=== PATIENT | male | born 1960 | race Hispanic/Latino ===

== ENCOUNTER 2022-07-26 16:41 | Inpatient (IN) | payer BC ==
[~2022-07-26] VITALS: Ht 170.2 cm; Wt 62.6 kg
[2022-07-26] MEDS ORDERED: LISINOPRIL2.5 MG PO (17:28)
[2022-07-26] MEDS ORDERED: CLOPIDOGREL75 MG PO (17:28)
[2022-07-26] MEDS ORDERED: ASPIRIN EC81 MG PO (17:28)
[2022-07-26] MEDS ORDERED: METOPROLOL TART25 MG PO (17:28)
[2022-07-26] MEDS ORDERED: METFORMIN HCL500 M2 PO (17:28)
[2022-07-26] MEDS ORDERED: TETANUS/DIPHTHERIA TOX ADULT 0.5 ML SYR IM ONE (18:30)
[2022-07-26] MEDS ORDERED: Vancomycin IV 1 GM in SODIUM CHLORIDE 0.9% 250ML 250 ML IV ONE (18:30)
[2022-07-26] MEDS ORDERED: SODIUM CHLORIDE 0.9% 250ML 250 ML ONE (18:38)
[2022-07-26] MEDS ORDERED: PIPERACILLIN/TAZOBACTAM 3.375 GM VIAL ONE (18:38)
[2022-07-26] MEDS ORDERED: SODIUM CHLORIDE 0.9% 1000ML 1,000 ML ONE (18:38)
[2022-07-26] MEDS ORDERED: Vancomycin IV 1 GM VIAL ONE (18:38)
[2022-07-26] MEDS ORDERED: TETANUS/DIPHTHERIA TOX ADULT 0.5 ML SYR ONE (18:38)
[2022-07-26] MEDS: SODIUM CHLORIDE 0.9% 1000ML 1,000 ML IV SCH (18:46)
[2022-07-26] MEDS ORDERED: ONDANSETRON HCL INJ 2MG/ML 2ML 2 MG/ML VIAL IV PRN (19:30)
[2022-07-26] MEDS ORDERED: SODIUM CHLORIDE FLUSH 10 ML SYR INJ PRN (19:30)
[2022-07-26] MEDS ORDERED: DEXTROSE 50% SYRINGE 50 ML IV PRN (19:45)
[2022-07-26 20:00] VITALS: BP 156/87; PULSE 97; RESP 20; TEMP 98.6; O2SAT 100
[2022-07-26 20:51] VITALS: BP 156/87; PULSE 97; RESP 20; TEMP 98.6; O2SAT 100
[2022-07-26 22:15] VITALS: BP 156/87; PULSE 97; RESP 20; TEMP 98.6; O2SAT 100
[2022-07-26] MEDS: INSULIN LISPRO 100 UNIT/1 ML 3ML VIAL SQ SCH (22:39)
[2022-07-27] VITALS (9 sets, daily range): BP systolic 148–171; BP diastolic 77–99; PULSE 82–97; RESP 18–23; TEMP 98.5–100.1; O2SAT 96–100
[2022-07-27] MEDS: SODIUM CHLORIDE 0.9% 1000ML 1,000 ML IV SCH ×2 (01:12→13:38)
[2022-07-27] MEDS: KETOROLAC TROMETHAMINE 30 MG/ML VIAL IV PRN ×2 (01:12→20:17)
[2022-07-27 06:17] LABS: CHOL/HDL RATIO 4.8 (3.9-4.7)
[2022-07-27] MEDS: Vancomycin IV 1 GM in SODIUM CHLORIDE 0.9% 250ML 250 ML IV SCH ×2 (06:29→17:52)
[2022-07-27 06:32] LABS: BASOPHILS % 0.2 % (0.0-1.0); EOSINOPHILS # (AUTO) 0.1 (0.0-0.4); HEMATOCRIT 32.9 % (38.2-49.6); HEMOGLOBIN 10.9 g/dL (14.0-18.0); LYMPHOCYTES % 22.5 % (18.0-39.1); MEAN CORPUSCULAR HEMOGLOBIN 26.1 pg (28-32); MEAN CORPUSCULAR HGB CONC 33.1 g/dL (31-35); MEAN CORPUSCULAR VOLUME 78.7 fL (81-99); MONOCYTES % 11.4 % (4.4-11.3); NEUTROPHILS # (AUTO) 5.7 (2.1-6.9); NEUTROPHILS % 64.6 % (38.7-80.0); PLATELET COUNT 296 x10e3/uL (140-360); RED BLOOD COUNT 4.18 x10e6/uL (4.3-5.7); RED CELL DISTRIBUTION WIDTH 13.3 % (11.7-14.4)
[2022-07-27 06:40] LABS: ALBUMIN 2.6 g/dL (3.5-5.0); ALBUMIN/GLOBULIN RATIO 0.6 (0.8-2.0); ANION GAP 13.1 mmol/L (8-16); CALCIUM 9.1 mg/dL (8.4-10.2); CREATININE, SERUM 0.85 mg/dL (0.72-1.25); POTASSIUM 4.1 mmol/L (3.5-5.1)
[2022-07-27] MEDS: INSULIN LISPRO 100 UNIT/1 ML 3ML VIAL SQ SCH ×4 (08:51→20:30)
[2022-07-27] MEDS: CEFEPIME 2 GM in SODIUM CHLORIDE 0.9% 100 ML IV SCH (20:17)
[2022-07-28] VITALS (7 sets, daily range): BP systolic 143–160; BP diastolic 84–90; PULSE 84–93; RESP 18–20; TEMP 98.7–99.5; O2SAT 97–100
[2022-07-28] MEDS: SODIUM CHLORIDE 0.9% 1000ML 1,000 ML IV SCH ×3 (00:58→17:04)
[2022-07-28] MEDS: Vancomycin IV 1 GM in SODIUM CHLORIDE 0.9% 250ML 250 ML IV SCH ×2 (04:36→18:37)
[2022-07-28 05:46] LABS: HEMATOCRIT 32.3 % (38.2-49.6); HEMOGLOBIN 10.6 g/dL (14.0-18.0); MEAN CORPUSCULAR HEMOGLOBIN 26.4 pg (28-32); MEAN CORPUSCULAR HGB CONC 32.8 g/dL (31-35); MEAN CORPUSCULAR VOLUME 80.3 fL (81-99); PLATELET COUNT 285 x10e3/uL (140-360); RED BLOOD COUNT 4.02 x10e6/uL (4.3-5.7); RED CELL DISTRIBUTION WIDTH 13.1 % (11.7-14.4)
[2022-07-28 06:20] LABS: ALBUMIN 2.5 g/dL (3.5-5.0); ALBUMIN/GLOBULIN RATIO 0.6 (0.8-2.0); CALCIUM 8.7 mg/dL (8.4-10.2); CREATININE, SERUM 0.77 mg/dL (0.72-1.25)
[2022-07-28] MEDS: INSULIN LISPRO 100 UNIT/1 ML 3ML VIAL SQ SCH ×4 (07:30→20:36)
[2022-07-28] MEDS: METOPROLOL TARTRATE 25 MG TAB PO SCH ×2 (08:39→20:38)
[2022-07-28] MEDS: CEFEPIME 2 GM in SODIUM CHLORIDE 0.9% 100 ML IV SCH ×2 (08:39→20:41)
[2022-07-28 09:50] LABS: EOSINOPHILS % (MANUAL) 4 % (0-7); LYMPHOCYTES % (MANUAL) 26 % (19-48); MONOCYTES % (MANUAL) 7 % (3.4-9.0); NEUTROPHILS % (MANUAL) 58 % (40-74)
[2022-07-28 09:51] LABS: PLATELET ESTIMATE ADEQUATE; PLATELET MORPHOLOGY COMMENT NORMAL; RBC MORPHOLOGY COMMENT NORMAL
[2022-07-28] MEDS: ASPIRIN 81 MG CHEW TAB PO SCH (10:50)
[2022-07-28] MEDS: KETOROLAC TROMETHAMINE 30 MG/ML VIAL IV PRN (18:39)
[2022-07-28] MEDS: ATORVASTATIN 40 MG TAB PO SCH (20:39)
[2022-07-29] VITALS: BP 139/79; PULSE 80; RESP 18; TEMP 99; O2SAT 99
[2022-07-29] MEDS: SODIUM CHLORIDE 0.9% 1000ML 1,000 ML IV SCH ×3 (00:34→22:15)
[2022-07-29 04:00] VITALS: BP 148/79; PULSE 85; RESP 18; TEMP 99.7; O2SAT 100
[2022-07-29] MEDS: Vancomycin IV 1 GM in SODIUM CHLORIDE 0.9% 250ML 250 ML IV SCH ×2 (06:08→19:07)
[2022-07-29 06:25] LABS: BASOPHILS % 0.2 % (0.0-1.0); EOSINOPHILS # (AUTO) 0.1 (0.0-0.4); EOSINOPHILS % 1.4 % (0.0-6.0); HEMATOCRIT 33.9 % (38.2-49.6); LYMPHOCYTES # (AUTO) 2.1 (1.0-3.2); LYMPHOCYTES % 22.7 % (18.0-39.1); MEAN CORPUSCULAR HEMOGLOBIN 26.3 pg (28-32); MEAN CORPUSCULAR HGB CONC 32.4 g/dL (31-35); MEAN CORPUSCULAR VOLUME 81.1 fL (81-99); MONOCYTES # (AUTO) 0.8 (0.2-0.8); MONOCYTES % 8.9 % (4.4-11.3); NEUTROPHILS % 66.3 % (38.7-80.0); PLATELET COUNT 333 x10e3/uL (140-360); RED BLOOD COUNT 4.18 x10e6/uL (4.3-5.7); RED CELL DISTRIBUTION WIDTH 13.2 % (11.7-14.4)
[2022-07-29 06:29] LABS: INR 1.04; PARTIAL THROMBOPLASTIN TIME 35.3 seconds (23.8-35.5); PROTHROMBIN TIME 14.1 seconds (11.9-14.5)
[2022-07-29 06:42] LABS: ALBUMIN 2.6 g/dL (3.5-5.0); ALBUMIN/GLOBULIN RATIO 0.5 (0.8-2.0); ANION GAP 13.1 mmol/L (8-16); CALCIUM 9.1 mg/dL (8.4-10.2); CHOL/HDL RATIO 4.8 (3.9-4.7); CREATININE, SERUM 0.74 mg/dL (0.72-1.25); POTASSIUM 4.1 mmol/L (3.5-5.1)
[2022-07-29 07:09] LABS: THYROID STIMULATING HORMONE 1.135 uIU/mL (0.350-4.940)
[2022-07-29] MEDS: INSULIN LISPRO 100 UNIT/1 ML 3ML VIAL SQ SCH ×4 (07:30→22:14)
[2022-07-29] MEDS ORDERED: SODIUM CHLORIDE 0.9% 200 ML ONE (08:13)
[2022-07-29] MEDS ORDERED: CEFEPIME 2 GM VIAL ONE (08:15)
[2022-07-29 08:37] VITALS: BP 160/85; PULSE 90; RESP 19; TEMP 98; O2SAT 100
[2022-07-29] MEDS: METOPROLOL TARTRATE 25 MG TAB PO SCH ×2 (09:34→22:15)
[2022-07-29] MEDS: ASPIRIN 81 MG CHEW TAB PO SCH (09:34)
[2022-07-29] MEDS: CEFEPIME 2 GM in SODIUM CHLORIDE 0.9% 100 ML IV SCH ×2 (09:35→22:15)
[2022-07-29] MEDS ORDERED: HEPARIN SOD (PORCINE) 1000 UNIT/ML 30ML ONE (11:31)
[2022-07-29] MEDS ORDERED: LIDOCAINE HCL 2% LOCAL 20 ML VIAL ONE (11:31)
[2022-07-29] MEDS ORDERED: IOPAMIDOL 370 MG/ML 100 ML INFUS..BTL INJ ONE (11:31)
[2022-07-29] MEDS ORDERED: NITROGLYCERIN/D5W 200 MCG/ML 250 ML ONE (11:31)
[2022-07-29] MEDS ORDERED: SODIUM CHLORIDE 0.9% 1000ML 1,000 ML ONE ×2 (11:31→12:01)
[2022-07-29] MEDS ORDERED: HEPARIN SOD/SOD CHLORIDE 2,000 ML ONE (11:31)
[2022-07-29] MEDS ORDERED: MIDAZOLAM HCL 2 MG/2 ML VIAL ONE (12:00)
[2022-07-29] MEDS ORDERED: FENTANYL CITRATE/PF 100MCG/2 ML INJ ONE (12:01)
[2022-07-29 15:00] VITALS: BP_SYST 157; BP_SYST 161; BP_DIAS 71; BP_DIAS 79; BP_DIAS 86; PULSE 87; PULSE 90; RESP 18; RESP 20; TEMP 98.7; TEMP 99.3; O2SAT 100; O2SAT 96
[2022-07-29] MEDS: KETOROLAC TROMETHAMINE 30 MG/ML VIAL IV PRN (19:05)
[2022-07-29 20:00] VITALS: BP 151/77; PULSE 88; RESP 17; TEMP 99.9; O2SAT 100
[2022-07-29 21:00] VITALS: BP 151/77; PULSE 88; RESP 17; TEMP 99.9; O2SAT 100
[2022-07-29] MEDS: ATORVASTATIN 40 MG TAB PO SCH (22:15)
[2022-07-30] VITALS: BP 141/78; PULSE 80; RESP 17; TEMP 98.9; O2SAT 100
[2022-07-30 04:00] VITALS: BP 147/79; PULSE 79; RESP 17; TEMP 99; O2SAT 98
[2022-07-30] MEDS: SODIUM CHLORIDE 0.9% 1000ML 1,000 ML IV SCH ×3 (05:39→18:53)
[2022-07-30] MEDS: Vancomycin IV 1 GM in SODIUM CHLORIDE 0.9% 250ML 250 ML IV SCH ×2 (05:39→18:28)
[2022-07-30] MEDS ORDERED: DEXAMETHASONE SOD PHOS INJ 4 MG/ML SDV ONE (06:38)
[2022-07-30] MEDS ORDERED: BUPIVACAINE HCL 0.5% INJ 30 ML VIAL INJ ONE (06:38)
[2022-07-30] MEDS: INSULIN LISPRO 100 UNIT/1 ML 3ML VIAL SQ SCH ×4 (07:30→21:30)
[2022-07-30 08:26] VITALS: BP 153/82; PULSE 81; RESP 17; TEMP 98.2; O2SAT 100
[2022-07-30] MEDS: ASPIRIN 81 MG CHEW TAB PO SCH (10:21)
[2022-07-30] MEDS: METOPROLOL TARTRATE 50 MG TAB PO SCH ×2 (10:21→21:24)
[2022-07-30] MEDS: LOSARTAN POTASSIUM 25 MG TAB PO SCH (10:22)
[2022-07-30] MEDS: CEFEPIME 2 GM in SODIUM CHLORIDE 0.9% 100 ML IV SCH ×2 (10:22→21:24)
[2022-07-30] MEDS ORDERED: FENTANYL CITRATE/PF 100MCG/2 ML INJ ONE (11:54)
[2022-07-30] MEDS ORDERED: LIDOCAINE HCL 2% LOCAL INJ 5 ML SDV VIAL INJ ONE (13:01)
[2022-07-30] MEDS ORDERED: KETOROLAC TROMETHAMINE 30 MG/ML VIAL ONE (13:01)
[2022-07-30] MEDS ORDERED: PROPOFOL IV EMULSION 10 MG/ML 20 ML VIAL ONE (13:01)
[2022-07-30] MEDS ORDERED: POVIDONE IODINE 0.05% 0.05 % ML PO ONE (13:01)
[2022-07-30] MEDS ORDERED: METOCLOPRAMIDE HCL 10 MG/2ML VIAL ONE (13:01)
[2022-07-30] MEDS ORDERED: EPHEDRINE SULFATE INJ 50 MG/ML VIAL ONE (13:01)
[2022-07-30] MEDS ORDERED: SEVOFLURANE INHAL SOLN 250 ML PEN BTL ONE (13:01)
[2022-07-30 15:45] VITALS: BP 143/76; PULSE 76; RESP 18; TEMP 98.9; O2SAT 100
[2022-07-30 20:27] VITALS: BP 152/80; PULSE 80; RESP 17; TEMP 99.7; O2SAT 99
[2022-07-30 21:00] VITALS: BP 152/80; PULSE 80; RESP 17; TEMP 99.7; O2SAT 99
[2022-07-30] MEDS: ATORVASTATIN 40 MG TAB PO SCH (21:24)
[2022-07-31] VITALS (7 sets, daily range): BP systolic 140–163; BP diastolic 74–86; PULSE 74–94; RESP 17–20; TEMP 98.4–101; O2SAT 97–100
[2022-07-31] MEDS: SODIUM CHLORIDE 0.9% 1000ML 1,000 ML IV SCH ×3 (02:00→16:23)
[2022-07-31] MEDS: Vancomycin IV 1 GM in SODIUM CHLORIDE 0.9% 250ML 250 ML IV SCH ×2 (05:24→16:22)
[2022-07-31] MEDS: METOPROLOL TARTRATE 50 MG TAB PO SCH ×2 (10:57→20:18)
[2022-07-31] MEDS: ASPIRIN 81 MG CHEW TAB PO SCH (10:57)
[2022-07-31] MEDS: LOSARTAN POTASSIUM 25 MG TAB PO SCH (10:58)
[2022-07-31] MEDS: CEFEPIME 2 GM in SODIUM CHLORIDE 0.9% 100 ML IV SCH ×2 (10:58→20:17)
[2022-07-31] MEDS: INSULIN LISPRO 100 UNIT/1 ML 3ML VIAL SQ SCH ×4 (11:05→20:25)
[2022-07-31] MEDS: KETOROLAC TROMETHAMINE 30 MG/ML VIAL IV PRN (13:00)
[2022-07-31] MEDS: ACETAMINOPHEN 325 MG TAB PO PRN (20:19)
[2022-07-31] MEDS: ATORVASTATIN 40 MG TAB PO SCH (20:19)
[2022-08-01] VITALS (7 sets, daily range): BP systolic 138–153; BP diastolic 75–83; PULSE 73–85; RESP 16–20; TEMP 98.4–100.1; O2SAT 96–99
[2022-08-01] MEDS: SODIUM CHLORIDE 0.9% 1000ML 1,000 ML IV SCH ×3 (03:48→18:18)
[2022-08-01 06:57] LABS: ALBUMIN 1.7 g/dL (3.5-5.0); ALBUMIN/GLOBULIN RATIO 0.5 (0.8-2.0); ANION GAP 11.1 mmol/L (8-16); CREATININE, SERUM 0.54 mg/dL (0.72-1.25); POTASSIUM 3.1 mmol/L (3.5-5.1)
[2022-08-01] MEDS: Vancomycin IV 1 GM in SODIUM CHLORIDE 0.9% 250ML 250 ML IV SCH (07:04)
[2022-08-01] MEDS: INSULIN LISPRO 100 UNIT/1 ML 3ML VIAL SQ SCH ×4 (07:30→20:57)
[2022-08-01 07:33] LABS: CALCIUM 6.5 mg/dL (8.4-10.2)
[2022-08-01 07:45] LABS: HEMATOCRIT 26.8 % (38.2-49.6); HEMOGLOBIN 8.8 g/dL (14.0-18.0); MEAN CORPUSCULAR HGB CONC 32.8 g/dL (31-35); MEAN CORPUSCULAR VOLUME 79.1 fL (81-99); PLATELET COUNT 354 x10e3/uL (140-360); RED BLOOD COUNT 3.39 x10e6/uL (4.3-5.7); RED CELL DISTRIBUTION WIDTH 13.2 % (11.7-14.4)
[2022-08-01] MEDS ORDERED: POTASSIUM CHLORIDE 20 MEQ TAB CR PO ONE (10:20)
[2022-08-01] MEDS ORDERED: CALCIUM GLUC 1 G/50 ML NACL 50 ML IV ONE (10:35)
[2022-08-01] MEDS: CEFEPIME 2 GM in SODIUM CHLORIDE 0.9% 100 ML IV SCH (11:45)
[2022-08-01] MEDS: ACETAMINOPHEN 325 MG TAB PO PRN (11:45)
[2022-08-01] MEDS: ASPIRIN 81 MG CHEW TAB PO SCH (11:45)
[2022-08-01] MEDS: LOSARTAN POTASSIUM 25 MG TAB PO SCH (11:46)
[2022-08-01] MEDS: METOPROLOL TARTRATE 50 MG TAB PO SCH ×2 (11:46→20:50)
[2022-08-01] MEDS: CLOPIDOGREL BISULFATE 75 MG TAB PO SCH (11:48)
[2022-08-01] MEDS: CIPROFLOXACIN 500 MG TAB PO SCH ×2 (18:17→20:49)
[2022-08-01] MEDS: DOXYCYCLINE HYCLATE TABLET 100 MG TAB PO SCH ×2 (18:17→20:49)
[2022-08-01] MEDS: ATORVASTATIN 40 MG TAB PO SCH (20:49)
[2022-08-02] VITALS: BP 129/76; PULSE 74; RESP 17; TEMP 99.1; O2SAT 100
[2022-08-02 04:00] VITALS: BP 139/72; PULSE 83; RESP 17; TEMP 99; O2SAT 99
[2022-08-02] MEDS: SODIUM CHLORIDE 0.9% 1000ML 1,000 ML IV SCH ×2 (05:11→09:11)
[2022-08-02 08:54] VITALS: BP 155/82; PULSE 82; RESP 16; TEMP 99; O2SAT 96
[2022-08-02] MEDS: METOPROLOL TARTRATE 50 MG TAB PO SCH (09:06)
[2022-08-02] MEDS: CLOPIDOGREL BISULFATE 75 MG TAB PO SCH (09:06)
[2022-08-02] MEDS: ASPIRIN 81 MG CHEW TAB PO SCH (09:06)
[2022-08-02] MEDS: DOXYCYCLINE HYCLATE TABLET 100 MG TAB PO SCH (09:07)
[2022-08-02] MEDS: CIPROFLOXACIN 500 MG TAB PO SCH (09:07)
[2022-08-02] MEDS: LOSARTAN POTASSIUM 25 MG TAB PO SCH (09:07)
[2022-08-02] MEDS: INSULIN LISPRO 100 UNIT/1 ML 3ML VIAL SQ SCH ×2 (09:24→12:18)
[2022-08-02] MEDS ORDERED: CIPROFLOXACIN500 MG PO (10:04)
[2022-08-02] MEDS ORDERED: METOPROLOL TART50 MG PO (10:04)
[2022-08-02] MEDS ORDERED: COZAAR25 MG PO (10:04)
[2022-08-02] MEDS ORDERED: ATORVASTATIN CA40 MG PO (10:04)
[2022-08-02] MEDS ORDERED: DOXYCYCLINE HY100 MG PO (10:04)
[2022-08-02] MEDS ORDERED: ONDANSETRON HCL 4 MG ORAL DISINTEGRATING TAB PO PRN (12:30)
== END 2022-08-02 12:44 | disposition home or self-care (01) | DRG 617 ==
LOC: FSED 17:22 → ERHOLD 19:33 → MED/SURG3 21:17
PROVIDERS: ADMIT Internal Medicine; ATTEND Internal Medicine
PROC: 0Y6Q0Z0 Detachment at Left 1st Toe, Complete, Open Approach (ICD-10-PCS; principal; 2022-07-30 07:04)
DX: E11.69 Type 2 diabetes mellitus with other specified complication (principal); E11.52 Type 2 diabetes mellitus with diabetic peripheral angiopathy with gangrene; M86.172 Other acute osteomyelitis, left ankle and foot; I31.39 Other pericardial effusion (noninflammatory); I96 Gangrene, not elsewhere classified; L03.115 Cellulitis of right lower limb; L03.116 Cellulitis of left lower limb; I50.22 Chronic systolic (congestive) heart failure; E11.65 Type 2 diabetes mellitus with hyperglycemia; I11.0 Hypertensive heart disease with heart failure; I77.89 Other specified disorders of arteries and arterioles; I25.10 Atherosclerotic heart disease of native coronary artery without angina pectoris; Z20.822 Contact with and (suspected) exposure to COVID-19; Z95.5 Presence of coronary angioplasty implant and graft; I25.2 Old myocardial infarction; Z83.3 Family history of diabetes mellitus; Z82.49 Family history of ischemic heart disease and other diseases of the circulatory system; Z91.148 Patient's other noncompliance with medication regimen for other reason; Z59.6 Low income; Z63.8 Other specified problems related to primary support group
CPT/HCPCS: 0223U; 36415; 75625; 75710; 80053; 80061; 80202; 82948; 83036; 83605; 84145; 84443; 85007; 85025; 85027; 85610; 85730; 86140; 87040; 87071; 87075; 87086; 87205; 88304; 88305; 88311; 90471; 90714; 93306; 93925; 96361; 96372; 99152; 99153; 99284; C1760; C1769; C1887; C1894; J0692; J1100; J1644; J1885; J2001; J2250; J2543; J2765; J7030; J7050; Q9967

== ENCOUNTER → 2022-08-04 | Outpatient (CLI) | payer BC ==
[~2022-08-04] MED LIST: ASPIRIN EC81 MG PO; ATORVASTATIN CA40 MG PO; CIPROFLOXACIN500 MG PO; CLOPIDOGREL75 MG PO; COZAAR25 MG PO; DOXYCYCLINE HY100 MG PO; LIDOCAINE VISC 2% SOLN 15 ML UDC ONE; LISINOPRIL2.5 MG PO; METFORMIN HCL500 M2 PO; METOPROLOL TART25 MG PO; METOPROLOL TART50 MG PO
[2022-08-06 14:54] LABS: HEMATOCRIT 32.8 % (38.2-49.6); HEMOGLOBIN 10.8 g/dL (14.0-18.0); MEAN CORPUSCULAR HEMOGLOBIN 26.1 pg (28-32); MEAN CORPUSCULAR HGB CONC 32.9 g/dL (31-35); MEAN CORPUSCULAR VOLUME 79.2 fL (81-99); PLATELET COUNT 469 x10e3/uL (140-360); RED BLOOD COUNT 4.14 x10e6/uL (4.3-5.7); RED CELL DISTRIBUTION WIDTH 13.5 % (11.7-14.4)
[2022-08-06 15:01] LABS: EOSINOPHILS % (MANUAL) 1 % (0-7); LYMPHOCYTES % (MANUAL) 19 % (19-48); MONOCYTES % (MANUAL) 6 % (3.4-9.0); NEUTROPHILS % (MANUAL) 74 % (40-74)
[2022-08-06 15:02] LABS: PLATELET ESTIMATE MODERATELY INCREASED; PLATELET MORPHOLOGY COMMENT NORMAL; RBC MORPHOLOGY COMMENT NORMAL
[2022-08-06 15:19] LABS: ALBUMIN 2.9 g/dL (3.5-5.0); ALBUMIN/GLOBULIN RATIO 0.6 (0.8-2.0); ANION GAP 17.7 mmol/L (8-16); CALCIUM 9.7 mg/dL (8.4-10.2); CREATININE, SERUM 0.82 mg/dL (0.72-1.25); POTASSIUM 3.7 mmol/L (3.5-5.1)
== END ==
LOC: WCC 14:00
PROVIDERS: ATTEND Family Medicine Adult Medicine
DX: E11.621 Type 2 diabetes mellitus with foot ulcer (principal); T86.821 Skin graft (allograft) (autograft) failure; Y83.5 Amputation of limb(s) as the cause of abnormal reaction of the patient, or of later complication, without mention of misadventure at the time of the procedure; L97.512 Non-pressure chronic ulcer of other part of right foot with fat layer exposed
CPT/HCPCS: 36415; 80053; 82948; 83036; 84134; 85007; 85027

== ENCOUNTER → 2022-08-06 | Outpatient (CLI) | payer BC ==
[~2022-08-06] MED LIST changes: -LIDOCAINE VISC 2% SOLN 15 ML UDC ONE
== END ==
LOC: RAD 10:31
PROVIDERS: ATTEND Family Medicine Adult Medicine
DX: T86.821 Skin graft (allograft) (autograft) failure (principal)
CPT/HCPCS: 71046; 93005

== ENCOUNTER → 2022-08-10 | Outpatient (CLI) | payer BC | LOC: WCC 13:38 | PROVIDERS: ATTEND Family Medicine Adult Medicine | DX: T86.821 Skin graft (allograft) (autograft) failure (principal); Y83.5 Amputation of limb(s) as the cause of abnormal reaction of the patient, or of later complication, without mention of misadventure at the time of the procedure; E11.621 Type 2 diabetes mellitus with foot ulcer; L97.512 Non-pressure chronic ulcer of other part of right foot with fat layer exposed ==

== ENCOUNTER 2022-08-11 12:29 | Observation (INO) | payer BC ==
[~2022-08-11] VITALS: Ht 170.2 cm; Wt 62.6 kg
[2022-08-11 13:02] LABS: BASOPHILS % 0.4 % (0.0-1.0); EOSINOPHILS % 0.4 % (0.0-6.0); HEMATOCRIT 33.2 % (38.2-49.6); LYMPHOCYTES # (AUTO) 2.1 (1.0-3.2); LYMPHOCYTES % 22.1 % (18.0-39.1); MEAN CORPUSCULAR HEMOGLOBIN 25.8 pg (28-32); MEAN CORPUSCULAR HGB CONC 33.1 g/dL (31-35); MEAN CORPUSCULAR VOLUME 77.8 fL (81-99); MONOCYTES # (AUTO) 0.7 (0.2-0.8); MONOCYTES % 7.4 % (4.4-11.3); NEUTROPHILS # (AUTO) 6.6 (2.1-6.9); NEUTROPHILS % 69.4 % (38.7-80.0); PLATELET COUNT 383 x10e3/uL (140-360); RED BLOOD COUNT 4.27 x10e6/uL (4.3-5.7); RED CELL DISTRIBUTION WIDTH 13.6 % (11.7-14.4)
[2022-08-11 13:07] LABS: INR 1.06; PROTHROMBIN TIME 14.4 seconds (11.9-14.5)
[2022-08-11 13:08] LABS: PARTIAL THROMBOPLASTIN TIME 30.1 seconds (23.8-35.5)
[2022-08-11 13:20] LABS: ALBUMIN 3.1 g/dL (3.5-5.0); ALBUMIN/GLOBULIN RATIO 0.7 (0.8-2.0); ANION GAP 17.3 mmol/L (8-16); CALCIUM 9.4 mg/dL (8.4-10.2); CREATININE, SERUM 1.2 mg/dL (0.72-1.25); POTASSIUM 4.3 mmol/L (3.5-5.1)
[2022-08-11] MEDS ORDERED: ONDANSETRON HCL INJ 2MG/ML 2ML 2 MG/ML VIAL IV PRN (14:45)
[2022-08-11] MEDS: SODIUM CHLORIDE 0.9% 1000ML 1,000 ML IV SCH ×2 (14:45→22:10)
[2022-08-11 15:22] VITALS: PULSE 71; RESP 16; O2SAT 97
[2022-08-11 20:00] VITALS: BP 154/91; PULSE 96; RESP 18; TEMP 98.8; O2SAT 98
[2022-08-11 20:40] VITALS: BP 154/91; PULSE 96; RESP 18; TEMP 98.8; O2SAT 98
[2022-08-11 20:45] VITALS: BP 154/91; PULSE 96; RESP 18; TEMP 98.8; O2SAT 98
[2022-08-11 20:56] VITALS: PULSE 68; RESP 16; O2SAT 95
[2022-08-11] MEDS ORDERED: DEXTROSE 50% SYRINGE 50 ML IV PRN (22:00)
[2022-08-11] MEDS: INSULIN LISPRO 100 UNIT/1 ML 3ML VIAL SQ SCH (22:10)
[2022-08-12] VITALS (8 sets, daily range): BP systolic 115–139; BP diastolic 78–85; PULSE 80–96; RESP 16–18; TEMP 98.1–99.3; O2SAT 97–100
[2022-08-12] MEDS: SODIUM CHLORIDE 0.9% 1000ML 1,000 ML IV SCH ×3 (06:11→22:19)
[2022-08-12 06:15] LABS: BASOPHILS % 0.4 % (0.0-1.0); EOSINOPHILS # (AUTO) 0.2 (0.0-0.4); EOSINOPHILS % 2.6 % (0.0-6.0); HEMATOCRIT 31.5 % (38.2-49.6); HEMOGLOBIN 10.5 g/dL (14.0-18.0); LYMPHOCYTES # (AUTO) 2.2 (1.0-3.2); LYMPHOCYTES % 26.5 % (18.0-39.1); MEAN CORPUSCULAR HEMOGLOBIN 25.9 pg (28-32); MEAN CORPUSCULAR HGB CONC 33.3 g/dL (31-35); MEAN CORPUSCULAR VOLUME 77.6 fL (81-99); MONOCYTES # (AUTO) 0.6 (0.2-0.8); MONOCYTES % 7.6 % (4.4-11.3); NEUTROPHILS # (AUTO) 5.1 (2.1-6.9); NEUTROPHILS % 62.5 % (38.7-80.0); PLATELET COUNT 342 x10e3/uL (140-360); RED BLOOD COUNT 4.06 x10e6/uL (4.3-5.7); RED CELL DISTRIBUTION WIDTH 13.4 % (11.7-14.4)
[2022-08-12 06:44] LABS: ALBUMIN 2.8 g/dL (3.5-5.0); ALBUMIN/GLOBULIN RATIO 0.6 (0.8-2.0); CALCIUM 9.2 mg/dL (8.4-10.2); CREATININE, SERUM 0.82 mg/dL (0.72-1.25)
[2022-08-12] MEDS: INSULIN LISPRO 100 UNIT/1 ML 3ML VIAL SQ SCH ×5 (07:30→20:55)
[2022-08-12] MEDS: METFORMIN HCL 500 MG TAB CR PO SCH ×2 (09:12→18:01)
[2022-08-12] MEDS: CLOPIDOGREL BISULFATE 75 MG TAB PO SCH (09:12)
[2022-08-12] MEDS: METOPROLOL TARTRATE 50 MG TAB PO SCH ×2 (09:12→20:48)
[2022-08-12] MEDS: DOXYCYCLINE HYCLATE TABLET 100 MG TAB PO SCH ×2 (09:12→20:47)
[2022-08-12] MEDS: LOSARTAN POTASSIUM 25 MG TAB PO SCH (09:13)
[2022-08-12] MEDS ORDERED: ONDANSETRON HCL 4 MG ORAL DISINTEGRATING TAB PO PRN (14:15)
[2022-08-12 14:21] LABS: CREATINE KINASE 36 IU/L (30-200)
[2022-08-12] MEDS ORDERED: ATORVASTATIN 40 MG TAB PO SCH (21:00)
[2022-08-13 01:35] VITALS: BP 130/82; PULSE 83; RESP 17; TEMP 98.7; O2SAT 100
[2022-08-13 05:50] VITALS: BP 136/85; PULSE 82; RESP 17; TEMP 98.6; O2SAT 100
[2022-08-13] MEDS: SODIUM CHLORIDE 0.9% 1000ML 1,000 ML IV SCH (06:54)
[2022-08-13] MEDS: INSULIN LISPRO 100 UNIT/1 ML 3ML VIAL SQ SCH (07:30)
[2022-08-13 08:17] VITALS: BP 120/80; PULSE 88; RESP 20; TEMP 98.8; O2SAT 97
[2022-08-13] MEDS: METFORMIN HCL 500 MG TAB CR PO SCH (08:28)
[2022-08-13] MEDS: METOPROLOL TARTRATE 50 MG TAB PO SCH (08:29)
[2022-08-13] MEDS: CLOPIDOGREL BISULFATE 75 MG TAB PO SCH (08:29)
[2022-08-13] MEDS: LOSARTAN POTASSIUM 25 MG TAB PO SCH (08:29)
[2022-08-13] MEDS: DOXYCYCLINE HYCLATE TABLET 100 MG TAB PO SCH (08:31)
[2022-08-13 08:45] VITALS: BP 120/80; PULSE 88; RESP 20; TEMP 98.8; O2SAT 97
[2022-08-13] MEDS ORDERED: ASPIRIN 81 MG CHEW TAB PO SCH (09:00)
[2022-08-13 11:41] VITALS: BP 127/79; PULSE 79; RESP 18; TEMP 97.6; O2SAT 100
== END 2022-08-13 12:04 | disposition home or self-care (01) ==
LOC: ER 12:58 → ERHOLD 14:37 → MED/SURG2 18:13
PROVIDERS: ADMIT Internal Medicine; ATTEND Internal Medicine
DX: R07.89 Other chest pain (principal); E11.65 Type 2 diabetes mellitus with hyperglycemia; E11.621 Type 2 diabetes mellitus with foot ulcer; E11.51 Type 2 diabetes mellitus with diabetic peripheral angiopathy without gangrene; E11.42 Type 2 diabetes mellitus with diabetic polyneuropathy; E11.69 Type 2 diabetes mellitus with other specified complication; M86.172 Other acute osteomyelitis, left ankle and foot; I11.0 Hypertensive heart disease with heart failure; I50.22 Chronic systolic (congestive) heart failure; I25.10 Atherosclerotic heart disease of native coronary artery without angina pectoris; I25.2 Old myocardial infarction; Z95.5 Presence of coronary angioplasty implant and graft; Z79.84 Long term (current) use of oral hypoglycemic drugs; E78.5 Hyperlipidemia, unspecified; R42 Dizziness and giddiness; Z11.52 Encounter for screening for COVID-19; Z89.412 Acquired absence of left great toe; Z79.02 Long term (current) use of antithrombotics/antiplatelets; Z79.899 Other long term (current) drug therapy
CPT/HCPCS: 36415 ×3; 70450; 71045 ×2; 80053 ×2; 82550 ×2; 82948 ×3; 83880; 84484 ×2; 85025 ×2; 85610; 85730; 93005 ×2; 94799; 99284; G0378 ×3; J7030 ×3; U0002

== ENCOUNTER → 2022-11-03 | Outpatient (REF) | payer BC ==
[~2022-11-03] MED LIST changes: +CELEXA20 MG PO; +FARXIGA5 MG; +LANTUS 3ML100 UNITS/ SC; +LIDOCAINE VISC 2% SOLN 15 ML UDC ONE
== END ==
LOC: WCC 12:57
PROVIDERS: ATTEND Family Medicine Adult Medicine
DX: T86.821 Skin graft (allograft) (autograft) failure (principal); M86.18 Other acute osteomyelitis, other site; E11.621 Type 2 diabetes mellitus with foot ulcer; L97.512 Non-pressure chronic ulcer of other part of right foot with fat layer exposed

== ENCOUNTER → 2022-11-30 | Outpatient (REF) | payer BC ==
[~2022-11-30] MED LIST changes: -LIDOCAINE VISC 2% SOLN 15 ML UDC ONE
== END ==
LOC: WCC 14:40
PROVIDERS: ATTEND Family Medicine Adult Medicine
DX: E11.621 Type 2 diabetes mellitus with foot ulcer (principal); M86.18 Other acute osteomyelitis, other site; L97.512 Non-pressure chronic ulcer of other part of right foot with fat layer exposed
CPT/HCPCS: 83036; 84134; G0277

== ENCOUNTER → 2022-12-01 | Outpatient (REF) | payer BC | LOC: WCC 12:33 | PROVIDERS: ATTEND Family Medicine Adult Medicine | DX: E11.621 Type 2 diabetes mellitus with foot ulcer (principal); M86.18 Other acute osteomyelitis, other site; L97.512 Non-pressure chronic ulcer of other part of right foot with fat layer exposed | CPT/HCPCS: 11042; 36415; 82948; 99212; G0277 ==

== ENCOUNTER → 2022-12-02 | Outpatient (REF) | payer BC | LOC: WCC 13:46 | PROVIDERS: ATTEND Family Medicine Adult Medicine | DX: E11.621 Type 2 diabetes mellitus with foot ulcer (principal); M86.18 Other acute osteomyelitis, other site; L97.512 Non-pressure chronic ulcer of other part of right foot with fat layer exposed | CPT/HCPCS: 36415; 82948; G0277 ==

== ENCOUNTER → 2022-12-21 | Outpatient (REF) | payer BC ==
[~2022-12-21] MED LIST changes: +LIDOCAINE VISC 2% SOLN 15 ML UDC ONE
== END ==
LOC: WCC 10:38
PROVIDERS: ATTEND Internal Medicine Infectious Disease
DX: T86.821 Skin graft (allograft) (autograft) failure (principal); E11.621 Type 2 diabetes mellitus with foot ulcer; M86.18 Other acute osteomyelitis, other site; L97.512 Non-pressure chronic ulcer of other part of right foot with fat layer exposed; I73.89 Other specified peripheral vascular diseases

== ENCOUNTER → 2022-12-24 | Outpatient (REF) | payer BC ==
[~2022-12-24] MED LIST changes: -LIDOCAINE VISC 2% SOLN 15 ML UDC ONE
== END ==
LOC: WCC 12:13
PROVIDERS: ATTEND Nurse Practitioner Family
DX: E11.621 Type 2 diabetes mellitus with foot ulcer (principal); M86.18 Other acute osteomyelitis, other site; L97.512 Non-pressure chronic ulcer of other part of right foot with fat layer exposed; I73.89 Other specified peripheral vascular diseases
CPT/HCPCS: 36415; 82948

== ENCOUNTER → 2022-12-27 | Outpatient (REF) | payer BC | LOC: WCC 12:37 | PROVIDERS: ATTEND Internal Medicine Infectious Disease | DX: E11.621 Type 2 diabetes mellitus with foot ulcer (principal); M86.18 Other acute osteomyelitis, other site; L97.512 Non-pressure chronic ulcer of other part of right foot with fat layer exposed | CPT/HCPCS: 99213; G0277 ==

== ENCOUNTER → 2022-12-30 | Outpatient (REF) | payer BC | LOC: WCC 13:55 | PROVIDERS: ATTEND Internal Medicine Infectious Disease | DX: E11.621 Type 2 diabetes mellitus with foot ulcer (principal); M86.18 Other acute osteomyelitis, other site; L97.512 Non-pressure chronic ulcer of other part of right foot with fat layer exposed ==

== ENCOUNTER → 2023-01-03 | Outpatient (REF) | payer BC | LOC: WCC 12:27 | PROVIDERS: ATTEND Internal Medicine Infectious Disease | DX: E11.621 Type 2 diabetes mellitus with foot ulcer (principal); M86.18 Other acute osteomyelitis, other site; L97.512 Non-pressure chronic ulcer of other part of right foot with fat layer exposed | CPT/HCPCS: 99213; G0277 ==